=== PATIENT | male | born 1970 | race Hispanic/Latino ===

== ENCOUNTER 2018-03-13 17:17 | Observation (INO) | payer OTHER ==
[~2018-03-13] VITALS: Ht 175.3 cm; Wt 80.9 kg
[2018-03-13 17:54] LABS: ABSOLUTE BASOPHIL COUNT 0 /CUMM (0.0-0.2); ABSOLUTE EOSINOPHIL COUNT 0.2 /CUMM (0.0-0.7); ABSOLUTE GRANULOCYTE CT 6.2 /CUMM (1.4-6.5); ABSOLUTE LYMPH COUNT 2.1 /CUMM (1.2-3.4); ABSOLUTE MONOCYTE COUNT 0.5 /CUMM (0.10-0.60); BASOPHIL % 0.3 % (0.0-2.0); EOSINOPHIL % 2.1 % (0-5); GRANULOCYTE % 68.4 % (42.2-75.2); HEMATOCRIT 45.1 % (42-52); MEAN PLATELET VOLUME 8.2 FL (7.4-10.4); PLATELET COUNT 255 /CUMM (130-400); RBC DISTRIBUTION WIDTH 12.7 % (11.5-14.5); RED BLOOD CELL CT 4.96 /CUMM (4.70-6.10)
--- NOTE | 2018-03-13 18:00 | ED SYNCOPE COMPLAINT ---
History of Present Illness General Chief Complaint: Syncope and Near-Syncope Stated Complaint: WITNESSED SYNCOPE Source: patient Exam Limitations: no limitations Vital Signs & Intake/Output Vital Signs & Intake/Output Vital Signs Date Time Temp Pulse Resp B/P B/P Pulse O2 O2 Flow FiO2 Mean Ox Delivery Rate 03/14 0643 98.2 68 20 104/62 96 Room Air 03/14 0214 Room Air 03/14 0110 98.4 58 20 110/64 96 Room Air 03/14 0057 50 20 105/58 98 03/13 2238 98.0 43 18 115/73 98 Room Air 03/13 2212 98.0 47 18 103/64 98 Room Air 03/13 2011 97.8 55 16 112/56 96 Room Air 03/13 1804 Room Air 03/13 1728 98.8 75 18 119/78 98 Room Air ED Intake and Output 03/14 0000 03/13 1200 Intake Total Output Total Balance Patient 174 lb Weight Allergies Coded Allergies: No Known Allergies (03/13/18) Reconcile Medications Cyanocobalamin (Vitamin B-12) (Unknown Strength) TABLET (Unknown Dose) PO DAILY SUPPLEMENT (Reported) Multiple Vitamin (Multivitamins) 1 EACH TABLET 1 TAB PO DAILY SUPPLEMENT ( Reported) Triage Note: 47M S/P SYNCOPAL EPISODE OUTSIDE AFTER DOING YARDWORK, WAS OUTSIDE FOR A COUPLE HOURS. DENIES CP OR HEADPAIN. UNSURE OF HEADSTRIKE. HAD EPISODE OF DIZZINESS PRIOR TO PASSING OUT. SIG OTHER REPORTS HIS BLOOD SUGAR WAS 108. HX SC 10 YEARS AGO, NO THINNER OR MEDS. FOCAL NEUROS GROSSLY INTACT, SPEECH CLEAR. -N/V. Triage Nurses Notes Reviewed? yes Timing: single episode today Precipitating Factors: lightheadedness Context: became dizzy/fainted Episode Description: Working outside in the heat became dizzy lightheaded fainted Loss of Consciousness: brief (seconds) HPI: 47-year-old male history of SC 10 years ago presents for evaluation after syncopal episode. Patient reports he was working out in his yard during the heat he suddenly felt dizzy lightheaded and had a syncopal episode. He reports that his iPhone watch record his heart rate in the 40s during this episode. He never had chest pain or shortness of breath. He reports that he was outside with a friend who was able to catch him partly on his way down but he did hit his head and has some neck pain. He denies any changes in vision vomiting slurred speech or focal weakness. No blood thinners. He is currently not taking any medications does not see a armored transport service manager and never followed up after the SC. He denies that the SC was drug induced. He reports he drank one beer today. He denies any alcohol or drug abuse. No history of withdrawal seizures. Currently he feels well has no symptoms. (Isaías Villalobos) Past History Travel History Traveled to [place] past 21 day No Medical History Any Pertinent Medical History? see below for history Surgical History Surgical History: non-contributory Psychosocial History What is your primary language Moh[place] Family History Hx Contributory? No (Isaías Villalobos) Review of Systems Review of Systems Constitutional: Reports: no symptoms. EENTM: Reports: no symptoms. Respiratory: Reports: no symptoms. Cardiovascular: Reports: no symptoms. GI: Reports: no symptoms. Genitourinary: Reports: no symptoms. Musculoskeletal: Reports: no symptoms. Skin: Reports: no symptoms. Neurological/Psychological: Reports: see HPI (dizzy lightheaded). All Other Systems: Reviewed and Negative (Isaías Villalobos) Physical Exam Physical Exam General Appearance: well developed/nourished, no apparent distress, alert, awake Head: atraumatic, normal appearance Eyes: Bilateral: normal appearance, PERRL, EOMI. Ears, Nose, Throat: hearing grossly normal Neck: normal inspection, supple, full range of motion, no midline tenderness, paraspinal muscles tender bilaterally no midline tenderness to also deformities Respiratory: normal breath sounds, chest non-tender, no respiratory distress, lungs clear Cardiovascular: regular rate/rhythm, normal peripheral pulses Gastrointestinal: normal bowel sounds, soft, non-tender, no organomegaly Back: normal inspection, normal range of motion, no vertebral tenderness Extremities: normal inspection, normal range of motion, no edema Psychiatric: awake, alert, oriented x 3 Cranial Nerves: normal hearing, normal speech, PERRL Coordination/Gait: normal finger to nose, normal gait Motor/Sensory: no motor/sensory deficits Skin: intact, normal color, warm/dry Lymphatic: no anterior cervical will Core Measures ACS in differential dx? Yes CVA/TIA Diagnosis: No Sepsis Present: No Sepsis Focused Exam Completed? No (Isaías Villalobos) Progress Differential Diagnosis: AMI, aortic dissection, orthostatic syncope, other valvular disease, pulmonary embolus, seizure, sick sinus syndrome, subarachnoid hem., TIA/CVA, ventricular tach/fib Plan of Care: Orders Procedure Date/time Status Heart Healthy Diet 03/14 B Active Change service to 03/14 0727 Active BASIC ELECTROLYTES PLUS BUN&CR 03/14 0600 Complete Vital Signs 03/14 012 Active Teach/Educate 03/14 127 Active Pain Treatment and Response 03/14 127 Active Nutritional Intake, Monitor 03/14 127 Active Isolation 03/14 127 Active Intake & Output 03/14 127 Active Patient Care Conference 03/14 127 Active Activity/Ambulation 03/14 127 Active TROPONIN LEVEL 03/14 0000 Complete EKG 03/14 0000 Active Pathway - chart 03/13 2338 Active Add-on Test (ER Only) 03/13 2336 Active MISTAKE 03/13 2336 Active NIH Stroke Scale 03/[address] in observation 03/13 2331 Active ED Holding Orders 03/13 2331 Active Vital Signs 03/13 2331 Active Code Status 03/13 2331 Complete Code Status 03/13 2331 Active Add-on Test (ER Only) 03/13 2308 Active Patient Data 03/13 2250 Active THYROID STIMULATING HORMONE 03/13 205 Complete THYROXINE 03/13 205 Complete LIPID PANEL 03/13 205 Complete TROPONIN LEVEL 03/13 205 Complete EKG 03/13 205 Active Add-on Test (ER Only) 03/13 1829 Active URINE DRUG SCREEN FOR ER ONLY 03/13 1828 Complete ETHANOL 03/13 1745 Complete Intake & Output 03/13 1729 Active TROPONIN LEVEL 03/13 1721 Complete LYME TITRE 03/13 1721 Active COMPREHENSIVE METABOLIC PANEL 03/13 1721 Complete CBC WITHOUT DIFFERENTIAL 03/13 1721 Complete EKG 03/13 1721 Active VTE Mechanical Prophylaxis 03/13 UNK Active Current Medications Sig/Melody Start time Last Medication Dose Stop Time Status Admin Heparin Sodium 5,000 UNIT Q8 03/14 0600 AC 03/14 (Porcine) 0622 Acetaminophen 650 MG Q8P PRN 03/13 2345 AC (Tylenol) Atorvastatin Calcium 40 MG 1700 03/13 2345 AC 03/14 (Lipitor) 0038 Laboratory Tests 03/14/18 0614: Troponin I < 0.01 03/14/18 0614: Anion Gap 7, Estimated GFR > 60, BUN/Creatinine Ratio 17.8 03/13/182051: Troponin I < 0.01, Triglycerides 359 H, Cholesterol 239 H, LDL Cholesterol, Calc 139 H, HDL Cholesterol 29 L, Cholesterol/HDL Ratio 8 H, TSH 0.458, Thyroxine (T4) 7.9 03/13/18 1830: Urine Opiates Screen < 100, Methadone Screen < 40, Barbiturate Screen < 60, Ur Phencyclidine Scrn < 6.00, Amphetamines Screen < 100, U Benzodiazepines Scrn < 85, Urine Cocaine Screen < 50, Urine Cannabis Screen < 5.00 03/13/18 182: Serum Alcohol Cancelled 03/13/18 1745: Anion Gap 8, Estimated GFR 59 L, BUN/Creatinine Ratio 13.1, Glucose 136 H, Calcium 9.1, Total Bilirubin 0.3, AST 18, ALT 26, Alkaline Phosphatase 82, Troponin I < 0.01, Total Protein 6.7, Albumin 4.1, Globulin 2.6, Albumin/ Globulin Ratio 1.6, CBC w Diff NO MAN DIFF REQ, RBC 4.96, MCV 91.0, MCH 31.0, MCHC 34.0, RDW 12.7, MPV 8.2, Gran % 68.4, Lymphocytes % 23.5, Monocytes % 5.7, Eosinophils % 2.1, Basophils % 0.3, Absolute Granulocytes 6.2, Absolute Lymphocytes 2.1, Absolute Monocytes 0.5, Absolute Eosinophils 0.2, Absolute Basophils 0, Serum Alcohol < 10.0 03/13/18 1721: Lyme Disease Antibody Pending Patient is here for evaluation of a syncopal episode. He was in his yard working so he got dizzy lightheaded syncopized. No chest pain or shortness of breath currently is at his baseline. EKG head CT ordered. Blood work ordered patient monitored on telemetry. perc negative. Initial blood work is unremarkable troponin is negative. Head CT is negative chest x-ray clear. Patient will get a repeat EKG troponin. Repeat EKG is sinus. The 40s. Patient has been on telemetry and has had heart rates as low as 39. He remains asymptomatic. Spoke with on-call armored transport service manager recommends admission for observation due to syncope and bradycardia. Patient will require serial lab serial EKGs monitoring of vital signs cardiology consult echocardiogram. Case discussed Dr. Moreno agrees Diagnostic Imaging: Viewed by Me: Radiology Read, CT Scan. Discussed w/RAD: Radiology Read, CT Scan. Radiology Impression: PATIENT: DENISE AMBROSIO PRESENT AGE: 47 PATIENT ACCOUNT NO: [id number] : 71 LOCATION: [facility] ORDERING PHYSICIAN: Isaías SURESH SERVICE DATE: 03/13/18 EXAM TYPE: CAT - CT CERV SPINE WO IV CONTRAST; CT HEAD WO IV CONTRAST EXAMINATIONS: CT HEAD WITHOUT CONTRAST AND CT CERVICAL SPINE WITHOUT CONTRAST CLINICAL INFORMATION: Syncope with head strike, trauma, neck pain COMPARISON: None. TECHNIQUE: Contiguous helical images of the brain were obtained without IV contrast. Contiguous helical images of the cervical spine were obtained without IV contrast. Multiplanar reconstructions were performed. DLP: 637, 389 mGy-cm FINDINGS: There are no pathologic extra-axial fluid collections. The lateral, third, fourth ventricles are nondilated and concordant with the appearance of the sulci. There is no evidence for acute intraparenchymal hemorrhage or infarct. Prominent hypodensity within the right frontotemporal region measuring 5 mm is most consistent with Virchow-Rocky space. There is neither mass nor mass effect. There is no shift of midline structures. The paranasal sinuses and mastoid air cells are clear. There are no osseous lesions. The cervical vertebra are in normal alignment. Disc heights and vertebral heights are well-preserved. There are no fractures. There is no prevertebral soft tissue swelling. Normal thyroid gland. The visualized lung apices are clear. IMPRESSION: No evidence for acute intracranial injury. No evidence for acute injury to the cervical spine. DICTATED BY: Dalia Varela MD DATE/TIME DICTATED:03/13/181937 SOFTWARE DEVELOPMENT PROJECT MANAGER :OLIVE DATE/TIME TRANSCRIBED:03/13/181937 CONFIDENTIAL, DO NOT COPY WITHOUT APPROPRIATE AUTHORIZATION. <Electronically signed in Other Vendor System> SIGNED BY: Dalia Varela MD 03/13/181950 Initial ED EKG: normal sinus rhythm, LEFT AXIS DEVIATION (Isaías Villalobos) Departure Departure Disposition: STILL A PATIENT Condition: Stable Clinical Impression Primary Impression: Syncope Qualifiers: Syncope type: unspecified Qualified Code: R55 - Syncope and collapse Secondary Impressions: Bradycardia Referrals: Patient Has No Primary Care Dr (PCP/Family) Departure Forms: Customer Survey General Discharge Information Observation Note Spoke With: Shahid Fatima MD Physician Advisor Notified: JEREMY MORENO DO Place Patient In: Non-ED OBS Care Area Rationale for Observation: My rational for observation is as follows [telemetry, serial labs, serial EKGs, echocardiogram, cardiology consult]. (Isaías Villalobos) PA/RESEARCH MANAGER Co-Sign Statement Statement: ED Attending supervision documentation- [x] I saw and evaluated the patient. I have also reviewed all the pertinent lab results and diagnostic results. I agree with the findings and the plan of care as documented in the PA's/RESEARCH MANAGER's documentation. [] I have reviewed the ED Record and agree with the PA's/RESEARCH MANAGER's documentation. [] Additions or exceptions (if any) to the PAs/RESEARCH MANAGER's note and plan are summarized below: [] 47-year-old man with syncope and bradycardia. He was in no acute distress on my evaluation. (Jeremy Moreno DO)
--- NOTE | 2018-03-13 19:00 | RADIOLOGY REPORT ---
EXAMINATION: XR PORTABLE CHEST CLINICAL INFORMATION: Syncope COMPARISON: None TECHNIQUE: Portable frontal view of the chest was obtained. FINDINGS: The cardiomediastinal contours are within normal limits. Mild biapical pleural-parenchymal thickening. Lungs are clear without consolidation or effusion. Minimal left lower lobe atelectasis. IMPRESSION: No acute cardiopulmonary process.
[2018-03-13] MEDS ORDERED: VITAMIN B-121000 MC3 PO (19:04)
[2018-03-13] MEDS ORDERED: MULTIVITAMINS1 EAC9 PO (19:05)
--- NOTE | 2018-03-13 19:51 | CT SCAN REPORT ---
EXAMINATIONS: CT HEAD WITHOUT CONTRAST AND CT CERVICAL SPINE WITHOUT CONTRAST CLINICAL INFORMATION: Syncope with head strike, trauma, neck pain COMPARISON: None. TECHNIQUE: Contiguous helical images of the brain were obtained without IV contrast. Contiguous helical images of the cervical spine were obtained without IV contrast. Multiplanar reconstructions were performed. DLP: 637, 389 mGy-cm FINDINGS: There are no pathologic extra-axial fluid collections. The lateral, third, fourth ventricles are nondilated and concordant with the appearance of the sulci. There is no evidence for acute intraparenchymal hemorrhage or infarct. Prominent hypodensity within the right frontotemporal region measuring 5 mm is most consistent with Virchow-Rocky space. There is neither mass nor mass effect. There is no shift of midline structures. The paranasal sinuses and mastoid air cells are clear. There are no osseous lesions. The cervical vertebra are in normal alignment. Disc heights and vertebral heights are well-preserved. There are no fractures. There is no prevertebral soft tissue swelling. Normal thyroid gland. The visualized lung apices are clear. IMPRESSION: No evidence for acute intracranial injury. No evidence for acute injury to the cervical spine.
--- NOTE | 2018-03-13 22:57 | History & Physical ---
Raquel North 03/13/18 2252: General Information and HPI MD Statement: I have seen and personally examined DENISE AMBROSIO and documented this H&P. The patient is a 47 year old M who presented with a patient stated chief complaint of SYNCOPE. Source of Information: patient Exam Limitations: no limitations History of Present Illness: Patient is a 47 year old male with past medical history of a myocardial infarction 10 years ago s/p cardiac cath (98% block) with stent insertion who presented with a cheif complaing of "passing out." Patient was in his usual state of health until 2PM 03/13/18 where he was working outside on pipes for a water heater on a pool where he started to feel dizzy and lost consciousness. Patient states he had witnessed bystanders nearby and was told he was passed out for about 30 seconds. He claims he was outside for a total of 4 hours before the incident and had no symptoms other than the diziness prior to the episode and sweating. Patient did not remember what had happened when he woke up or if he had significant trauma to his head or body but felt neck pain for a short time on flexion. Patient does not follow up with any PCP and never saw a pipe caulker after his HI. Patient never took aspirin and other medications after his cardiac catherization 10 years ago. Patient denies any rashes or tick bites. No recent sick contact. 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 He has been smoking since 19 years of age about 1.5 packs/day. Patient drinks occasionally and denies any illicit drug use. Family history of aunt who had HI at age 54 and father who of a brain tumor. No significant surgical history reported. No allergies. Patient denied chest pain, palpitations, dizziness, visual changes, speech difficulty, weakness, numbness, tingling, dysuria, fevers, chills or bowel or bladder changes on review of systems. Past History Travel History Traveled to [place] past 21 day No Medical History Neurological: NONE EENT: NONE Cardiovascular: myocardial infarction Respiratory: NONE Gastrointestinal: NONE Hepatic: NONE Renal: NONE Musculoskeletal: NONE Psychiatric: NONE Endocrine: NONE Surgical History Surgical History: none Past Family/Social History Psychosocial History Smoking Status: Heavy Tobacco Smoker ETOH Use: occasional use Review of Systems Review of Systems Constitutional: Denies: see HPI. Exam & Diagnostic Data Last 24 Hrs of Vital Signs/I&O Vital Signs Date Time Temp Pulse Resp B/P B/P Pulse O2 O2 Flow FiO2 Mean Ox Delivery Rate 03/138 98.0 43 18 115/73 98 Room Air 03/13 2212 98.0 47 18 103/64 98 Room Air 03/13 2011 97.8 55 16 112/56 96 Room Air 03/13 1804 Room Air 03/13 1728 98.8 75 18 119/78 98 Room Air Physical Exam General Appearance Alert, Oriented X3, Cooperative, No Acute Distress Skin No Rashes, No Breakdown HEENT PERRLA, EOMI, Mucous Membr. moist/pink Cardiovascular Regular Rate, Normal S1, Normal S2, No Murmurs Lungs Clear to Auscultation, Normal Air Movement Abdomen Normal Bowel Sounds, Soft, No Tenderness Neurological Normal Gait, Normal Speech, Strength at 5/5 X4 Ext, Normal Tone, Sensation Intact, Cranial Nerves 3-12 NL, Reflexes 2+ Extremities No Clubbing, No Cyanosis, No Edema, Normal Pulses Vascular Normal Pulses, Pulses Symmetrical Last 24 Hrs of Labs/Martell: Laboratory Tests 03/13/182051: Troponin I < 0.01, Triglycerides Pending, Cholesterol Pending, LDL Cholesterol, Calc Pending, HDL Cholesterol Pending, Cholesterol/HDL Ratio Pending, TSH Pending, Thyroxine (T4) Pending 03/13/18 1830: Urine Opiates Screen < 100, Methadone Screen < 40, Barbiturate Screen < 60, Ur Phencyclidine Scrn < 6.00, Amphetamines Screen < 100, U Benzodiazepines Scrn < 85, Urine Cocaine Screen < 50, Urine Cannabis Screen < 5.00 03/13/18 1828: Serum Alcohol Cancelled 03/13/18 1745: Anion Gap 8, Estimated GFR 59 L, BUN/Creatinine Ratio 13.1, Glucose 136 H, Calcium 9.1, Total Bilirubin 0.3, AST 18, ALT 26, Alkaline Phosphatase 82, Troponin I < 0.01, Total Protein 6.7, Albumin 4.1, Globulin 2.6, Albumin/ Globulin Ratio 1.6, CBC w Diff NO MAN DIFF REQ, RBC 4.96, MCV 91.0, MCH 31.0, MCHC 34.0, RDW 12.7, MPV 8.2, Gran % 68.4, Lymphocytes % 23.5, Monocytes % 5.7, Eosinophils % 2.1, Basophils % 0.3, Absolute Granulocytes 6.2, Absolute Lymphocytes 2.1, Absolute Monocytes 0.5, Absolute Eosinophils 0.2, Absolute Basophils 0, Serum Alcohol < 10.0 03/13/18 1721: Lyme Disease Antibody Pending Assessment/Plan Assessment: Patient is a 47 year old female with PMH of HI 10 years ago s/p cardiac catherization and stent placement who presented to ED after a syncopal episode after doing yardwork for 4 hours. Episode of dizziness prior to passing out. Imaging negative for any acute pathology. EKG demonstrates sinus bradycardia with peaked T waves. Troponins negative. Patient non-compliant since cardiac cath with any medication. EMERGENCY DEPARTMENT: Vitals: 98.8, 75 - 43, 119/78, 98%RA EKG: Sinus Bradycardia 47, peaked T waves Troponin: 0.01 X 2 Utox: Negative CBC: WBC: 9.0, Hgb: 15.4, Hct: 45.1, Plt: 255 Chemistry: Na: 140, K+ 3.9, Cl 107, CO2 25, BUN 17, Cr 1.3 (no baseline) CXR: No acute cardiopulmonary process. HEAD CT: CERVICAL SPINE CT: No evidence for acute intracranial injury. No evidence for acute injury to the cervical spine. PROBLEM LIST: 1. SYNCOPE 2. HISTORY OF HI S/P STENT 10 years ago 3. Questionable SARA (Cr: 1.3) PLAN: SYNCOPE Patient presented with diziness and loss of consciousness on admission with a cardiac history 10 years ago s/p stent placement. Patient bradycardia 47 on EKG with peaked T waves. Non-compliant since, on no medications, does not follow primary care. Negative troponins and imaging. Syncope likely due dehydration (cr 1.3) from patient being out in sun, versus cardiogenic cause from bradycardia or a neurogenic phenomenon. Will observe in telemetry. * Observation on telemetry for bradycardia, arrythmias * Trend troponin/EKG given cardiac history of HI at age [age] years old * Q4 Neuro-checks * Orthostatic Vital Signs * Cardiology consultation in the AM * Encourage PO intake/hydration * Monitor BEP in the morning for creatinine given 1.3 on admission, no baseline comparison, likely due to dehydration outside * Atropine at bedside for HR < 30 given bradycardia on assessment/EKG * Check TSH, T4, Rule out infection that may be causes of bradycardia HISTORY OF HI S/P STENT * Observe in telemetry * Serial EKG/Troponins * Cardiology consultation * Start ASA + Statin SARA * Encourage PO intake/hydration * BEP in the AM; creatinine 1.3 on admission (no baseline comparison); likely due to dehydration in the sun Code Status: Full Code Diet: Regular Diet DVT PPx: Heparin SC As Ranked By This Provider Problem List: 1. Syncope Qualifiers Syncope type: unspecified Qualified Code: R55 - Syncope and collapse Core Measures/Misc (04/18) Acute Coronary Syndrome ACS Diagnosis: No Congestive Heart Failure Congestive Heart Failure Diagnosis No Cerebrovascular Accident CVA/TIA Diagnosis: No VTE (View Protocol) VTE Risk Factors Age>40 No Mechanical VTE Prophylaxis d/t N/A MechProphylax Ordered No VTE Pharm Prophylaxis d/t NA PharmProphylax ordered Sepsis (View protocol) Sepsis Present: No If YES complete Sepsis Event Note If YES complete Sepsis Event Note Charity Sheldon 03/13/18 2340: Core Measures/Misc (04/18) Sepsis (View protocol) If YES complete Sepsis Event Note If YES complete Sepsis Event Note Resident Review Statement Resident Statement: examined this patient, discussed with quality intern, agreed with quality intern Other Findings: Patient is 47-year-old male with past medical history of HI 10 years ago, which was followed by a cardiac cath and found to have 98% blockage in one of the vessels s/p cardiac stent. He came in today with a chief complaint of syncope. Patient states that around 2 PM today while he was working with heated pool pipes outside for last 4 hours, he suddenly collapsed to the floor and passed out. Patient states that he was dizzy before the fall and that his fall was witnessed by his cousins who were working with him. He remained passed out for a total of 30 seconds and woke up to his friends asking if he is okay. On review of systems, patient denies any headache/dizziness/chest pain/dyspnea/ abdominal discomfort/diarrhea/constipation/burning with urination/pain or swelling in lower extremities/numbness/tingling. Patient reports that he smokes one half pack a day since the age of 19 (smoking history of 32 pack years). He admits to drinking alcohol occasionally and denies any recreational drugs. He does not follow with any primary care physician. Patient states that after his cardiac stent 10 years ago, he was advised to take aspirin and other medications but he was noncompliant and did not take any medication. Labs and vitals as above, creatinine elevated to 1.3, baseline unknown. U tox negative. Patient came to ER with a heart rate of 75 and has been getting bradycardic to a heart rate as low as 43. Chest x-ray, no acute pulmonary process CAT - CT CERV SPINE WO IV CONTRAST; CT HEAD WO IV CONTRAST, No evidence for acute intracranial injury. No evidence for acute injury to the cervical spine. Problem list #1 syncope #2 history of HI #3 questionable SARA Assessment and plan Will bring the patient on telemetry floor as an observation, will monitor for any arrhythmias, watch for his bradycardia. We will cardiology consult in a.m, given his significant cardiac history and peak T waves on EKG from V23, we will trend his troponins and EKG. Every 4 neurochecks. Orthostatic vitals. Will encourage the patient to take p.o. liquids, patient states that he ate his lunch properly in a.m., he can have his dinner now. We will keep 0.5 mg IV atropine at bedside, and can rn acls if patient gets unstable with a heart rate of less than 30. Will start patient on aspirin, statin. Will check thyroid function test and lipid panel. DVT prophylaxis subcutaneous heparin Patient is full code [place] 03/14/18 0441: General Information and HPI Statement: I have seen and personally examined DENISE AMBROSIO and documented this H&P. The patient is a 47 year old M who presented with a patient stated chief complaint of [syncope]. Source of Information: patient Allergies/Medications Allergies: Coded Allergies: No Known Allergies (03/13/18) Home Med list Cyanocobalamin (Vitamin B-12) (Unknown Strength) TABLET (Unknown Dose) PO DAILY SUPPLEMENT (Reported) Multiple Vitamin (Multivitamins) 1 EACH TABLET 1 TAB PO DAILY SUPPLEMENT ( Reported) Past History Medical History Cardiovascular: myocardial infarction Past Family/Social History Psychosocial History Smoking Status: Heavy Tobacco Smoker ETOH Use: occasional use Illicit Drug Use: denies illicit drug use Employment History Employment Employed Review of Systems Review of Systems Constitutional: Reports: see HPI. Exam & Diagnostic Data Last 24 Hrs of Vital Signs/I&O Vital Signs Date Time Temp Pulse Resp B/P B/P Pulse O2 O2 Flow FiO2 Mean Ox Delivery Rate 03/14 0214 Room Air 03/14 0110 98.4 58 20 110/64 96 Room Air 03/14 0057 50 20 105/58 98 03/13 2238 98.0 43 18 115/73 98 Room Air 03/13 2212 98.0 47 18 103/64 98 Room Air 03/13 2011 97.8 55 16 112/56 96 Room Air 03/13 1804 Room Air 03/13 1728 98.8 75 18 119/78 98 Room Air Intake & Output 03/14 0800 03/14 0000 03/13 1600 Intake Total Output Total Balance Patient 178 lb 174 lb Weight Physical Exam General Appearance Alert, Oriented X3, Cooperative, No Acute Distress Skin No Rashes, No Breakdown HEENT Atraumatic, PERRLA, EOMI, Mucous Membr. moist/pink Cardiovascular Regular Rate, Normal S1, Normal S2, No Murmurs Lungs Clear to Auscultation, Normal Air Movement Abdomen Normal Bowel Sounds, Soft, No Tenderness Neurological Normal Gait, Normal Speech Extremities No Clubbing, No Cyanosis, No Edema, Normal Pulses Vascular Normal Pulses, Pulses Symmetrical Last 24 Hrs of Labs/Martell: Laboratory Tests 03/13/182: Troponin I < 0.01, Triglycerides 359 H, Cholesterol 239 H, LDL Cholesterol, Calc 139 H, HDL Cholesterol 29 L, Cholesterol/HDL Ratio 8 H, TSH 0.458, Thyroxine (T4) 7.9 03/13/18 1830: Urine Opiates Screen < 100, Methadone Screen < 40, Barbiturate Screen < 60, Ur Phencyclidine Scrn < 6.00, Amphetamines Screen < 100, U Benzodiazepines Scrn < 85, Urine Cocaine Screen < 50, Urine Cannabis Screen < 5.00 03/13/18 1828: Serum Alcohol Cancelled 03/13/18 1745: Anion Gap 8, Estimated GFR 59 L, BUN/Creatinine Ratio 13.1, Glucose 136 H, Calcium 9.1, Total Bilirubin 0.3, AST 18, ALT 26, Alkaline Phosphatase 82, Troponin I < 0.01, Total Protein 6.7, Albumin 4.1, Globulin 2.6, Albumin/ Globulin Ratio 1.6, CBC w Diff NO MAN DIFF REQ, RBC 4.96, MCV 91.0, MCH 31.0, MCHC 34.0, RDW 12.7, MPV 8.2, Gran % 68.4, Lymphocytes % 23.5, Monocytes % 5.7, Eosinophils % 2.1, Basophils % 0.3, Absolute Granulocytes 6.2, Absolute Lymphocytes 2.1, Absolute Monocytes 0.5, Absolute Eosinophils 0.2, Absolute Basophils 0, Serum Alcohol < 10.0 03/13/18 1721: Lyme Disease Antibody Pending Core Measures/Misc (04/18) Sepsis (View protocol) If YES complete Sepsis Event Note If YES complete Sepsis Event Note Attending MD Review Statement Attending Statement Attending MD Statement: examined this patient, discuss w/resident/PA/QUALITY ANALYST, agreed w/resident/PA/QUALITY ANALYST, reviewed EMR data (avail), amended to note Attending Assessment/Plan: This Patient is a 47 year old male with a significant past medical history for myocardial infarction 10 years ago s/p cardiac cath (98% block) with stent insertion who presented with a chief complaint of "passing out." Patient was in his usual state of health until 2PM 03/13/18 where he was working outside on pipes for a water heater on a pool where he started to feel dizzy and lost consciousness. He claims he was outside for a total of 4 hours before the incident and had no symptoms other than the dizziness prior to the episode and sweating. Upon evaluation in the emergency department the patient was found to be afebrile, creatinine 1.3, troponin less than 0.01, chest x-rayno acute disease, spine CT no acute disease, and head CTno acute disease an EKG with normal sinus rhythm. The patient will be placed on observation for syncope and probable acute coronary syndrome. Serial EKGs, troponins and oral anticoagulants started. Cardiology consulted. FULL CODE
[2018-03-14 01:10] VITALS: BP 110/64
--- NOTE | 2018-03-14 06:39 | PN-Observation ---
Felix Murry 03/14/18 0639: Observation Note Observation Note _ I have personally examined DENISE AMBROSIO. him disposition is uncertain at this time. Before a determination can be made, he requires continued observation for the following reasons Syncope and Bradycardia. Assessment/Plan Medical Assessment: 47 year old male with history of OR 10 years ago and poor medical follow-up presenting after a syncopal episode on a hot day. Troponins negative, K+ and Mg++ WNL, abnormal lipid panel. Problems: 1. Syncope 2. Bradycardia 3. Hyperlipidemia Problem List: 1. Bradycardia 2. Syncope Qualifiers Syncope type: unspecified Qualified Code: R55 - Syncope and collapse Plan: * Aspirin & Statin * Tylenol for neck pain * For cardiac workup (echo, stress test, possible cath) as outpatient Subjective Follow-up For: Syncope Bradycardia Tele-Events Since Last Visit: Normal sinus and sinus bradycardia overnight, Subjective: Patient seen resting comfortably in the bed. He denies chest pain, dizziness, palpitations or shortness of breath. The patient does complain of pain in his neck that was present after his syncopal episode and persists, milder than upon presentation however and possibly secondary to falling when syncopizing. Review of Systems Constitutional: Denies: chills, diaphoresis, fever. Cardiovascular: Denies: chest pain, edema, palpitations. Respiratory: Denies: cough, short of breath. Objective Last 24 Hrs of Vital Signs/I&O Vital Signs Date Time Temp Pulse Resp B/P B/P Pulse O2 O2 Flow FiO2 Mean Ox Delivery Rate 03/14 0643 98.2 68 20 104/62 96 Room Air 03/14 0214 Room Air 03/14 0110 98.4 58 20 110/64 96 Room Air 03/14 0057 50 20 105/58 98 03/13 2238 98.0 43 18 115/73 98 Room Air 03/13 2212 98.0 47 18 103/64 98 Room Air 03/13 2011 97.8 55 16 112/56 96 Room Air 03/13 1804 Room Air 03/13 1728 98.8 75 18 119/78 98 Room Air Intake & Output 03/14 0800 03/14 0000 03/13 1600 Intake Total Output Total Balance Patient 80.853 kg 78.925 kg Weight Physical Exam General Appearance: Alert, Oriented X3, Cooperative, No Acute Distress Cardiovascular: Regular Rate, Normal S1, Normal S2, No Murmurs Lungs: Clear to Auscultation, Normal Air Movement Current Medications: Current Medications Sig/Melody Start time Last Medication Dose Route Stop Time Status Admin Acetaminophen 650 MG Q8P PRN 03/13 2345 AC PO Aspirin 0 .STK-MED ONE 03/14 0035 DC PO Aspirin 325 MG ONCE ONE 03/135 DC 03/14 PO 03/13 2346 0038 Atorvastatin Calcium 40 MG 1700 03/13 2345 AC 03/14 PO 0038 Heparin Sodium 5,000 UNIT Q8 03/14 0600 AC 03/14 (Porcine) SC 0622 Last 24 Hrs of Labs/Mics: Laboratory Tests 03/14/18613: Troponin I Pending 03/14/18613: Sodium Pending, Potassium Pending, Chloride Pending, Carbon Dioxide Pending, Anion Gap Pending, BUN Pending, Creatinine Pending, BUN/Creatinine Ratio Pending 03/13/182051: Troponin I < 0.01, Triglycerides 359 H, Cholesterol 239 H, LDL Cholesterol, Calc 139 H, HDL Cholesterol 29 L, Cholesterol/HDL Ratio 8 H, TSH 0.458, Thyroxine (T4) 7.9 03/13/18 1830: Urine Opiates Screen < 100, Methadone Screen < 40, Barbiturate Screen < 60, Ur Phencyclidine Scrn < 6.00, Amphetamines Screen < 100, U Benzodiazepines Scrn < 85, Urine Cocaine Screen < 50, Urine Cannabis Screen < 5.00 03/13/18 1828: Serum Alcohol Cancelled 03/13/18 1745: Anion Gap 8, Estimated GFR 59 L, BUN/Creatinine Ratio 13.1, Glucose 136 H, Calcium 9.1, Total Bilirubin 0.3, AST 18, ALT 26, Alkaline Phosphatase 82, Troponin I < 0.01, Total Protein 6.7, Albumin 4.1, Globulin 2.6, Albumin/ Globulin Ratio 1.6, CBC w Diff NO MAN DIFF REQ, RBC 4.96, MCV 91.0, MCH 31.0, MCHC 34.0, RDW 12.7, MPV 8.2, Gran % 68.4, Lymphocytes % 23.5, Monocytes % 5.7, Eosinophils % 2.1, Basophils % 0.3, Absolute Granulocytes 6.2, Absolute Lymphocytes 2.1, Absolute Monocytes 0.5, Absolute Eosinophils 0.2, Absolute Basophils 0, Serum Alcohol < 10.0 03/13/18 1721: Lyme Disease Antibody Pending Bran CARBAJAL,Aleshia 03/14/18 1043: Observation Note Observation Note _ I have personally examined DAILYDENISE Gamez. him disposition is uncertain at this time. Before a determination can be made, he requires continued observation for the following reasons -47-year-old male past medical history of coronary artery disease, says he had a stent 10 years ago at [facility] but has not followed up since then. Active smoker and on no medications came in with complaints of syncope. I think the syncope was clearly heat and exertional related but given his risk factors he has been brought in as observation to rule out ACS. He is bradycardic with no obvious etiology. I spoke to Dr. Cantu and she will see him. Likely discharge with outpatient follow-up.
[2018-03-14 06:43] VITALS: BP 104/62
--- NOTE | 2018-03-14 10:21 | Patient Discharge Instructions ---
Discharge Instructions General Discharge Information You were seen/treated for: Syncope & Bradycardia Watch for these problems: With sudden feelings of dizziness, light-headedness, changes in vision, headache , chest pain, shortness of breath or nausea, please go to your nearest emergency department. Special Instructions: Please walk across the street to Dr. Cantu's office immediately after being discharged so that she may give you an event monitor. Also please establish care with your primary care provider (referral provided) and follow-up with your terminal carman (referral also provided); Diet Continue normal diet: Yes Recommended Diet: Heart Healthy Activity Full Activity/No Limits: No Activity Self Limited: Yes Acute Coronary Syndrome Inclusion Criteria At DC or during hospital stay patient has or had the following: ACS DIAGNOSIS No Discharge Core Measures Meds if any: Prescribed or Continued at Discharge Meds if any: NOT Prescribed or Continued at Discharge Congestive Heart Failure Inclusion Criteria At DC or during hospital stay patient has or had the following: CHF DIAGNOSIS No Discharge Core Measures Meds if any: Prescribed or Continued at Discharge Meds if any: NOT Prescribed or Continued at Discharge Cerebrovascular accident Inclusion Criteria At DC or during hospital stay patient has or had the following: CVA/TIA Diagnosis No Discharge Core Measures Meds if any: Prescribed or Continued at Discharge Meds if any: NOT Prescribed or Continued at Discharge Venous thromboembolism Inclusion Criteria VTE Diagnosis No VTE Type NONE VTE Confirmed by (Test) NONE Discharge Core Measures - Per Current guidelines, there needs to be overlap - treatment for the first 5 days of Warfarin therapy. - If discharged on Warfarin prior to 5 days of - overlap therapy, the patient will need to be - assessed for post discharge needs including - *Post discharge parental anticoagulation - *Warfarin and/or parental anticoagulation education - *Follow up date to check INR post discharge At least 5 days overlap therapy as Inpatient No Meds if any: Prescribed or Continued at Discharge Note: Overlap Therapy is Warfarin and Anticoagulant Meds if any: NOT Prescribed or Continued at Discharge
--- NOTE | 2018-03-14 10:37 | Cons- Cardiology ---
General Information and HPI Consulting Request Date of Consult: 03/14/18 Requested By: Aleshia Sotomayor MD Reason for Consult: SYNCOPE History of Present Illness: Mr. Du is a 47-year-old man with a history of coronary artery disease status post myocardial infarct at the age of 37. He has not followed up with a cokeman since the year of his event, and has not undergone a stress test or any other cardiac testing since. He presented to the emergency room on March 13, 2018 following syncope while working by his pool. The patient was standing by his pool, when he suddenly felt warmth moving up to his head, became extremely lightheaded and lost consciousness in front of his 's cousin who witnessed it and broke his fall. The patient regained consciousness within seconds, and there were no neurological symptoms afterwards. Earlier during the day, while he was sitting for lunch, the patient experienced lightheadedness without losing consciousness, and return to work in the afternoon. He denies chest pains denies palpitations, denies dyspnea, denies orthopnea. He does not have a history of palpitations or syncope. He has not experienced chest pains since his [place] 10 years ago. His work is quite physical, working outside in gardens and [employer]. He believes he was somewhat dehydrated on the day of the event, having had only a beer in the afternoon. Upon arrival to the emergency room the patient's laboratories were within normal limits, his troponins were negative, EKG did not show any signs of ischemia. Patient's heart rate was in the 40s, which is unusual for him, his heart rate usually varying between 85 and 100 at rest. Allergies/Medications Allergies: Coded Allergies: No Known Allergies (03/13/18) Home Med List: Cyanocobalamin (Vitamin B-12) (Unknown Strength) TABLET (Unknown Dose) PO DAILY SUPPLEMENT (Reported) Multiple Vitamin (Multivitamins) 1 EACH TABLET 1 TAB PO DAILY SUPPLEMENT ( Reported) Current Medications: Current Medications Sig/Melody Start time Last Medication Dose Route Stop Time Status Admin Acetaminophen 650 MG ONCE ONE 03/14 815 DC 03/14 PO 03/14 816 0909 Acetaminophen 650 MG Q8P PRN 03/13 2345 AC PO Aspirin 0 .STK-MED ONE 03/14 0035 DC PO Aspirin 325 MG ONCE ONE 03/13 2345 DC 03/14 PO 03/13 2346 0038 Atorvastatin Calcium 40 MG 1700 03/13 2345 AC 03/14 PO 0038 Heparin Sodium 5,000 UNIT Q8 03/14 0600 AC 03/14 (Porcine) MD 0622 Review of Systems Review of Systems Constitutional: Reports: no symptoms. EENTM: Reports: no symptoms. Cardiovascular: Reports: see HPI. Respiratory: Denies: cough, hemoptysis, orthopnea, short of breath, sputum production, stridor, wheezing. GI: Denies: abdominal pain, bloating, constipation, diarrhea, bowel incontinence, bloody stool, vomiting, steatorrhea. Genitourinary: Denies: discharge, dysuria, frequency, hematuria, hesitation, pain. Musculoskeletal: Denies: back pain, gout, joint pain, joint swelling, neck pain. Skin: Reports: no symptoms. Neurological/Psychological: Denies: anxiety, cognitive dysfunction, headache, tremors, weakness. Hematologic/Endocrine: Denies: bruising, bleeding. Immunologic/Allergic: Reports: no symptoms. Past History Travel History Traveled to [place] past 21 day No Medical History Blood Transfusion Hx: No Neurological: NONE EENT: NONE Cardiovascular: myocardial infarction Respiratory: NONE Gastrointestinal: NONE Hepatic: NONE Renal: NONE Musculoskeletal: NONE Psychiatric: NONE Endocrine: NONE Surgical History Surgical History: 1 Psychosocial History Smoking Status: Heavy Tobacco Smoker ETOH Use: occasional use Illicit Drug Use: denies illicit drug use Employment History Employment: Employed Exam & Diagnostic Data Vital Signs and I&O Vital Signs Date Time Temp Pulse Resp B/P B/P Pulse O2 O2 Flow FiO2 Mean Ox Delivery Rate 03/14 0643 98.2 68 20 104/62 96 Room Air 03/14 0214 Room Air 03/14 0110 98.4 58 20 110/64 96 Room Air 03/14 0057 50 20 105/58 98 03/13 2238 98.0 43 18 115/73 98 Room Air 03/13 2212 98.0 47 18 103/64 98 Room Air 03/13 2011 97.8 55 16 112/56 96 Room Air 03/13 1804 Room Air 03/13 1728 98.8 75 18 119/78 98 Room Air Intake & Output 03/14 1600 03/14 0800 03/14 0000 03/13 1600 03/13 0803/13 0000 Intake Total 110 Output Total Balance 110 Intake, Oral 110 Patient 178 lb 174 lb Weight Physical Exam General Appearance: well developed/nourished, no apparent distress, alert, comfortable Head: atraumatic Eyes: Bilateral: normal appearance. Ears, Nose, Throat: normal pharynx, normal ENT inspection Neck: normal inspection, supple, full range of motion, trachea mid line (NO JVD) Respiratory: normal breath sounds, chest non-tender, no respiratory distress, lungs clear Cardiovascular: regular rate/rhythm, NO MURMUR, NO S3, NO S4, NO RUB Gastrointestinal: normal bowel sounds, soft, non-tender Extremities: normal inspection, normal capillary refill, no edema Neurologic/Psych: no motor/sensory deficits, awake, alert, oriented x 3 Labs/Martell Results: Laboratory Tests 03/14 03/14 03/13 03/13 0614 0614 2052 1830 Chemistry Sodium (137 - 145 mmol/L) 140 Potassium (3.5 - 5.1 mmol/L) 3.8 Chloride (98 - 107 mmol/L) 109 H Carbon Dioxide (22 - 30 mmol/L) 24 Anion Gap (5 - 16) 7 BUN (9 - 20 mg/dL) 16 Creatinine (0.7 - 1.2 mg/dL) 0.9 Estimated GFR (>60 ml/min) > 60 BUN/Creatinine Ratio (7 - 25 %) 17.8 Troponin I (<0.11 ng/ml) < 0.01 < 0.01 Triglycerides (<150 mg/dL) 510 H 359 H Cholesterol (< 200 MG/DL) 218 H 239 H LDL Cholesterol Direct (<100 mg/dL) 120.55 H LDL Cholesterol, Calc (65 - 129 mg/dL) ND 139 H HDL Cholesterol (40 - 60 mg/dL) 24 L 29 L Cholesterol/HDL Ratio (0.00 - 4.88 %) 9 H 8 H TSH (0.270 - 4.200 uIU/mL) 0.458 Thyroxine (T4) (4.5 - 10.9 ug/dL) 7.9 Toxicology Urine Opiates Screen (>2000 NG/ML) < 100 Methadone Screen (>300 NG/ML) < 40 Barbiturate Screen (>200 NG/ML) < 60 Ur Phencyclidine Scrn (>25 NG/ML) < 6.00 Amphetamines Screen (>1000 NG/ML) < 100 U Benzodiazepines Scrn (>200 NG/ML) < 85 Urine Cocaine Screen (>300 NG/ML) < 50 Urine Cannabis Screen (>50 NG/ML) < 5.00 03/13 03/13 03/13 1828 1745 1721 Chemistry Sodium (137 - 145 mmol/L) 140 Potassium (3.5 - 5.1 mmol/L) 3.9 Chloride (98 - 107 mmol/L) 107 Carbon Dioxide (22 - 30 mmol/L) 25 Anion Gap (5 - 16) 8 BUN (9 - 20 mg/dL) 17 Creatinine (0.7 - 1.2 mg/dL) 1.3 H Estimated GFR (>60 ml/min) 59 L BUN/Creatinine Ratio (7 - 25 %) 13.1 Glucose (65 - 99 mg/dL) 136 H Calcium (8.4 - 10.2 mg/dL) 9.1 Total Bilirubin (0.2 - 1.3 mg/dL) 0.3 AST (17 - 59 U/L) 18 ALT (21 - 72 U/L) 26 Alkaline Phosphatase (< 127 U/L) 82 Troponin I (<0.11 ng/ml) < 0.01 Total Protein (6.3 - 8.2 g/dL) 6.7 Albumin (3.5 - 5.0 g/dL) 4.1 Globulin (1.9 - 4.2 gm/dL) 2.6 Albumin/Globulin Ratio (1.1 - 2.2 %) 1.6 Hematology CBC w Diff NO MAN DIFF REQ WBC (4.8 - 10.8 /CUMM) 9.0 RBC (4.70 - 6.10 /CUMM) 4.96 Hgb (14.0 - 18.0 G/DL) 15.4 Hct (42 - 52 %) 45.1 MCV (80.0 - 94.0 FL) 91.0 MCH (27.0 - 31.0 PG) 31.0 MCHC (33.0 - 37.0 G/DL) 34.0 RDW (11.5 - 14.5 %) 12.7 Plt Count (130 - 400 /CUMM) 255 MPV (7.4 - 10.4 FL) 8.2 Gran % (42.2 - 75.2 %) 68.4 Lymphocytes % (20.5 - 51.1 %) 23.5 Monocytes % (1.7 - 9.3 %) 5.7 Eosinophils % (0 - 5 %) 2.1 Basophils % (0.0 - 2.0 %) 0.3 Absolute Granulocytes (1.4 - 6.5 /CUMM) 6.2 Absolute Lymphocytes (1.2 - 3.4 /CUMM) 2.1 Absolute Monocytes (0.10 - 0.60 /CUMM) 0.5 Absolute Eosinophils (0.0 - 0.7 /CUMM) 0.2 Absolute Basophils (0.0 - 0.2 /CUMM) 0 Serology Lyme Disease Antibody Pending Toxicology Serum Alcohol (<10 MG/DL) Cancelled < 10.0 Assessment/Plan Assessment/Plan Syncope which appears vasovagal and patient with history of myocardial infarction with no cardiology follow-up in over a decade. Patient has been in sinus bradycardia which is unusual for him. I will be placing an event monitor on him immediately after discharge from the hospital at the cardiology clinic across the street the patient is aware of this. I will also do a stress test to verify both for chronotropic incompetence as well as ischemia. I will also do an echocardiogram as an outpatient. Patient's triglycerides are quite elevated, and he noticed that he is no longer taking statins. He is not followed regularly by her primary care physician either, he seems very anxious about taking time off to go see a doctor as his his employer seems quite stringent about taking time off for personal reasons. I would start him on atorvastatin 40 mg daily upon discharge and I already gave him my office card and stressed the importance of following up with me, but in the event that he should have other symptoms I told him he can always at least call. Patient can be discharged today. Consult Acknowledgment - Thank you for your consult request.
[2018-03-14] MEDS ORDERED: ASPIRIN81 M4 PO (11:27)
[2018-03-14] MEDS ORDERED: LIPITOR40 M1 PO (11:27)
== END 2018-03-14 12:23 ==
LOC: ERH 17:17 → ERHI 23:31 → 1NO 23:31 → ENRESERV 03-14 00:20 → 1NO 03-14 01:00 → ENPENDDIS 03-14 11:29 → 1NO 03-14 12:23
PROVIDERS: Internal Medicine; Physician Assistant Medical
DX: R55 Syncope and collapse (principal); I25.2 Old myocardial infarction; Z95.5 Presence of coronary angioplasty implant and graft; Z87.891 Personal history of nicotine dependence; N17.9 Acute kidney failure, unspecified; R00.1 Bradycardia, unspecified; E78.5 Hyperlipidemia, unspecified; I25.10 Atherosclerotic heart disease of native coronary artery without angina pectoris
CPT/HCPCS: 6020; 86618; 36592; 71045; 80307; 82436; 93005; 93010; 96372; G0378; G0480; J1644; J3490